=== PATIENT | male | born 1965 | race Caucasian/White ===

== ENCOUNTER → 2018-05-08 | Day surgery (SDC) | payer OTHER ==
[~2018-05-08] VITALS: Ht 175.3 cm; Wt 76.6 kg
[~2018-05-08] MED LIST: BACITRACIN TOP OINT 15 GM TUBE ONE; CHLORHEXIDINE GLUCONATE 2 % 1 PACK (2 CLOTHS) TOPICAL PRN; LACTATED RINGER'S 1000 ML INJ 500 ML IV SCH; LACTATED RINGER'S 1000 ML IV PRN; LIDOCAINE HCL 2% 50 ML VIAL ONE; LIDOCAINE HCL 2% PF 10 ML VIAL ONE; METOPROLOL TARTRATE 25 MG TAB PO PRN; MIDAZOLAM HCL 2 MG/2 ML VIAL ONE; POVIDONE IODINE 5% (ANTISEPSIS KIT) 4 APPLICATIONS EACH NARE PRN; PROPOFOL 200 MG/20 ML AMP IV ONE; PROPOFOL 500 MG/50 ML INJ 50 ML ONE; SODIUM CHLORID 0.9% 500 ML IV PRN; TRIAMCINOLONE ACETONIDE 40 MG/ML VIAL ONE; VARE1PAK3 PO; VITA2000 PO; ceFAZolin 1,000 MG/NS 100 ML IV SCH
[2018-05-08 13:10] VITALS: BP 125/78; PULSE 86; RESP 16; TEMP 98; O2SAT 99
--- NOTE | 2018-05-10 09:27 | MP ---
cc: Laura Ortiz MD DATE OF OPERATION: 05/08/2018 DATE OF SERVICE 05/08/2018. PREOPERATIVE DIAGNOSES: 1. Left carpal tunnel syndrome. 2. Arthritis left wrist and thumb. POSTOPERATIVE DIAGNOSES: 1. Left carpal tunnel syndrome. 2. Arthritis left wrist and thumb. PROCEDURE PERFORMED: 1. Left carpal tunnel release. 2. Corticosteroid injection left thumb. SURGEON: Dr. Laura Ortiz. ANESTHESIA: MAC. TOURNIQUET TIME: 15 minutes at 250 mmHg. INDICATION FOR PROCEDURE: Jamel Vallejo is a 52-year-old right-hand dominant male, who presents with paresthesias in the median nerve distribution bilaterally, as well as pain over the left wrist and thumb. He reports an old injury to the left wrist. EMG/nerve conduction study showed moderate to severe bilateral carpal tunnel syndrome. 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 Treatment options discussed with the patient. He elected to proceed with carpal tunnel release, as well as corticosteroid injection in the wrist and thumb, but to hold off on any surgical intervention at this time regarding arthritis surgery. DESCRIPTION OF PROCEDURE: The patient was identified in the preoperative holding area and the correct extremity was marked. The patient was taken to the operating room. Anesthesia was induced. Left upper extremity was prepped and draped in normal sterile fashion. Approximately 10 mL of 2% lidocaine without epinephrine was used for local anesthesia of the carpal tunnel. Tourniquet was inflated to 250 mmHg for approximately 15 minutes. A longitudinal incision was made in line with the radial border of ring finger. Palmar fascia was identified and incised. Transverse carpal ligament was identified and incised. There was significant compression of the median nerve. Care was taken to protect the ulnar nerve, ulnar artery and palmar arch and completely decompress the antebrachial fascia. Tourniquet was released. Hemostasis was obtained. Then, 1 mL of 2% lidocaine without epinephrine and 1 mL of Kenalog was injected into the left CMC joint without complication. He was awoken from anesthesia without any complications. I will see the patient back in 2 weeks for suture removal. Laura Ortiz MD [facility] , 10:59 PM , 09:24 AM [facility]
== END | disposition home or self-care (01) ==
LOC: HSDC 08:58
PROVIDERS: ATTEND Orthopaedic Surgery
DX: G56.02 Carpal tunnel syndrome, left upper limb (principal); M19.032 Primary osteoarthritis, left wrist; M19.042 Primary osteoarthritis, left hand
CPT/HCPCS: 01810; 20600; 64721; J0690; J2250; J3010; J3301; J7120